=== PATIENT | female | born 1985 | race African-American/Black ===

== ENCOUNTER 2016-12-30 01:37 | Emergency (ER) | payer MEDICAID ==
[~2016-12-30] VITALS: Ht 172.7 cm; Wt 84.0 kg
[2016-12-30 01:47] VITALS: BP 140/85
== END 2016-12-30 02:53 | disposition home or self-care (01) ==
LOC: ER 01:38
DX: J02.9 Acute pharyngitis, unspecified (principal); M79.1 Myalgia; F41.1 Generalized anxiety disorder; F43.0 Acute stress reaction; F12.90 Cannabis use, unspecified, uncomplicated
CPT/HCPCS: 99281

== ENCOUNTER 2017-04-11 22:08 | Emergency (ER) | payer MEDICAID | END 2017-04-11 23:11 | disposition left against medical advice (07) | LOC: ER 22:08 | DX: T74.12XA Child physical abuse, confirmed, initial encounter (principal); Y92.89 Other specified places as the place of occurrence of the external cause; Z53.21 Procedure and treatment not carried out due to patient leaving prior to being seen by health care provider ==

== ENCOUNTER 2018-03-19 00:19 | Emergency (ER) | payer MEDICAID ==
[~2018-03-19] VITALS: Ht 170.2 cm; Wt 86.0 kg
[2018-03-19 00:32] VITALS: BP 128/83
== END 2018-03-19 03:47 | disposition left against medical advice (07) ==
LOC: ER 03:28
DX: R22.41 Localized swelling, mass and lump, right lower limb (principal); Z53.21 Procedure and treatment not carried out due to patient leaving prior to being seen by health care provider
CPT/HCPCS: 81025

== ENCOUNTER 2018-09-10 21:18 | Emergency (ER) | payer MEDICAID ==
[~2018-09-10] VITALS: Ht 170.2 cm; Wt 86.0 kg
[2018-09-11] MEDS ORDERED: PENICILLIN G BENZATHINE 1,200,000 UNITS/2ML SYR IM ONE (05:00)
[2018-09-11] MEDS ORDERED: VISCOUS LIDOCAINE 2% 15 ML UDC MM STA (05:04)
[2018-09-11] MEDS ORDERED: IBUPROFEN 100MG/5ML UDC PO ONE (05:15)
[2018-09-11 05:41] VITALS: BP 112/46
== END 2018-09-11 05:42 | disposition home or self-care (01) ==
LOC: ER 21:18
DX: J02.0 Streptococcal pharyngitis (principal); J45.909 Unspecified asthma, uncomplicated
CPT/HCPCS: 87430; 96372; 99283; J0561

== ENCOUNTER 2018-12-29 20:29 | Emergency (ER) | payer MEDICAID | END 2018-12-29 20:40 | disposition left against medical advice (07) | LOC: ER 20:29 | DX: T78.40XA Allergy, unspecified, initial encounter (principal); Z53.21 Procedure and treatment not carried out due to patient leaving prior to being seen by health care provider ==

== ENCOUNTER 2019-04-27 15:16 | Emergency (ER) | payer MEDICAID ==
[~2019-04-27] VITALS: Ht 172.7 cm; Wt 86.0 kg
[2019-04-27 15:27] VITALS: BP 129/68
[2019-04-27] MEDS ORDERED: CARBAMIDE PEROXIDE 6.5% OTIC SOLN 15ML LEFT EAR ONE (16:30)
== END 2019-04-27 17:04 | disposition home or self-care (01) ==
LOC: ER 15:16
DX: H61.22 Impacted cerumen, left ear (principal); F12.10 Cannabis abuse, uncomplicated; J45.909 Unspecified asthma, uncomplicated
CPT/HCPCS: 99282